=== PATIENT | female | born 1990 | race Caucasian/White ===

== ENCOUNTER 2019-02-25 15:12 | Emergency (ER) | payer SELFPAY ==
[~2019-02-25] VITALS: Ht 175.3 cm; Wt 124.7 kg
--- NOTE | 2019-02-25 16:12 | PHYS DOC ---
Past Medical History Past Medical History: COPD Additional Past Medical Histor: RHEUMATOID ARTHRITIS, ADHD (SALVATORE BENNETT DO) Past Surgical History: Appendectomy, (SALVATORE BENNETT DO) Additional Information: 15 CIGS/DAY Alcohol Use: None Drug Use: Marijuana (SALVATORE BENNETT DO) Adult General Chief Complaint Chief Complaint: BACK PAIN OR INJURY HPI HPI Patient is a 28 year old female presented to ER today for evaluation of chest pain radiated to her upper back started today. Patient denies any injury. Patient has history hypertension, however she is not on any antihypertensive medication. Patient is a smoker, she is not on control medication, she denies any recent travel or operation. Patient denies any history of diabetes or any family history of blood clot disorder or coronary artery disease. She denies any headache, no weakness or numbness in her extremities. Patient says she is not . All other ROS is negative unless otherwise noted in HPI (SALVATORE BENNETT DO) Review of Systems Review of Systems See above (SALVATORE BENNETT DO) Current Medications Current Medications Current Medications Medications (Trade) Dose Ordered Sig/Myra Start Time Stop Time Status Last Admin Dose Admin Info (CONTRAST GIVEN -- Rx MONITORING) 1 each PRN DAILY PRN 02/25/19 17:00 02/27/19 16:59 Iohexol (Omnipaque 350 Mg/ml) 90 ml 1X ONCE 02/25/19 16:45 02/25/19 16:49 DC 02/25/19 17:40 90 ML Magnesium Sulfate 50 ml @ 25 mls/hr 1X ONCE 02/25/19 17:00 02/25/19 18:59 02/25/19 17:00 25 MLS/HR Morphine Sulfate (Morphine Sulfate) 4 mg 1X ONCE 02/25/19 16:15 02/25/19 16:16 DC 02/25/19 16:21 4 MG Ondansetron HCl (Zofran) 4 mg 1X ONCE 02/25/19 16:15 02/25/19 16:16 DC 02/25/19 16:21 4 MG (ERVIN SALMERON MD) Allergies Allergies Allergies Coded Allergies Type Severity Reaction Last Updated Verified No Known Drug Allergies 02/25/19 No (ERVIN SALMERON MD) Physical Exam Physical Exam See above Constitutional: Well developed, well nourished, no acute distress, non-toxic appearance. [] HENT: Normocephalic, atraumatic, bilateral external ears normal, oropharynx moist, no oral exudates, nose normal. [] Eyes: PERRLA, EOMI, conjunctiva normal, no discharge. [] Neck: Normal range of motion, no tenderness, supple, no stridor. [] Cardiovascular:Heart rate regular rhythm, no murmur [] Lungs & Thorax: Bilateral breath sounds clear to auscultation [] Abdomen: Bowel sounds normal, soft, no tenderness, no masses, no pulsatile masses. [] Skin: Warm, dry, no erythema, no rash. [] Back: No tenderness, no CVA tenderness. [] Extremities: No tenderness, no cyanosis, no clubbing, ROM intact, no edema. [] Neurologic: Alert and oriented X 3, normal motor function, normal sensory function, no focal deficits noted. [] Psychologic: Affect normal, judgement normal, mood normal. [] (SALVATORE BENNETT DO) Current Patient Data Vital Signs Vital Signs Date Time Temp Pulse Resp B/P (MAP) Pulse Ox O2 Delivery O2 Flow Rate FiO2 02/25/19 16:21 21 99 Room Air 02/25/19 15:54 98.0 108 173/118 (136) 98.0 (ERVIN SALMERON MD) Lab Values Laboratory Tests Test 02/25/19 15:44 02/25/19 16:08 02/25/19 17:06 Urine Collection Type Unknown Urine Color Yellow Urine Clarity Clear Urine pH 6.0 Urine Specific [place] 1.020 Urine Protein Negative mg/dL (NEG-TRACE) Urine Glucose (UA) Negative mg/dL (NEG) Urine Ketones (Stick) Negative mg/dL (NEG) Urine Blood Large (NEG) Urine Nitrite Negative (NEG) Urine Bilirubin Negative (NEG) Urine Urobilinogen Dipstick 0.2 mg/dL (0.2 mg/dL) Urine Leukocyte Esterase Negative (NEG) Urine RBC 1-2 /HPF (0-2) Urine WBC 1-4 /HPF (0-4) Urine Squamous Epithelial Cells Mod /LPF Urine Bacteria 0 /HPF (0-FEW) Urine Mucus Marked /LPF White Blood Count 7.4 x10^3/uL (4.0-11.0) Red Blood Count 5.10 x10^6/uL (3.50-5.40) Hemoglobin 15.1 g/dL (12.0-15.5) Hematocrit 43.1 % (36.0-47.0) Mean Corpuscular Volume 85 fL (79-100) Mean Corpuscular Hemoglobin 30 pg (25-35) Mean Corpuscular Hemoglobin Concent 35 g/dL (31-37) Red Cell Distribution Width 12.4 % (11.5-14.5) Platelet Count 205 x10^3/uL (140-400) Neutrophils (%) (Auto) 54 % (31-73) Lymphocytes (%) (Auto) 36 % (24-48) Monocytes (%) (Auto) 6 % (0-9) Eosinophils (%) (Auto) 4 % (0-3) H Basophils (%) (Auto) 1 % (0-3) Neutrophils # (Auto) 4.1 x10^3/uL (1.8-7.7) Lymphocytes # (Auto) 2.6 x10^3/uL (1.0-4.8) Monocytes # (Auto) 0.4 x10^3/uL (0.0-1.1) Eosinophils # (Auto) 0.3 x10^3/uL (0.0-0.7) Basophils # (Auto) 0.0 x10^3/uL (0.0-0.2) Prothrombin Time 13.5 SEC (11.7-14.0) Prothrombin Time INR 1.1 (0.8-1.1) Activated Partial Thromboplast Time 27 SEC (24-38) D-Dimer (Ibeth) 0.29 ug/mlFEU (0.00-0.50) Sodium Level 141 mmol/L (136-145) Potassium Level 4.0 mmol/L (3.5-5.1) Chloride Level 107 mmol/L (98-107) Carbon Dioxide Level 24 mmol/L (21-32) Anion Gap 10 (6-14) Blood Urea Nitrogen 13 mg/dL (7-20) Creatinine 0.6 mg/dL (0.6-1.0) Estimated GFR (Cockcroft-Gault) 118.2 BUN/Creatinine Ratio 22 (6-20) H Glucose Level 97 mg/dL (70-99) Calcium Level 9.0 mg/dL (8.5-10.1) Magnesium Level 1.7 mg/dL (1.8-2.4) L Total Bilirubin 0.4 mg/dL (0.2-1.0) Aspartate Amino Transferase (AST) 11 U/L (15-37) L Alanine Aminotransferase (ALT) 19 U/L (14-59) Alkaline Phosphatase 90 U/L (46-116) Troponin I Quantitative < 0.017 ng/mL (0.000-0.055) GA-Sve-K-Type Natriuretic Peptide 44 pg/mL (0-124) Total Protein 7.1 g/dL (6.4-8.2) Albumin 3.2 g/dL (3.4-5.0) L Albumin/Globulin Ratio 0.8 (1.0-1.7) L Lipase 78 U/L (73-393) POC Urine HCG, Qualitative Hcg negative (Negative) Laboratory Tests 02/25/19 16:08 Laboratory Tests 02/25/19 16:08 (ERVIN SALMERON MD) Lab Values Laboratory Tests Test 02/25/19 15:44 02/25/19 16:08 02/25/19 17:06 Urine Collection Type Unknown Urine Color Yellow Urine Clarity Clear Urine pH 6.0 Urine Specific [place] 1.020 Urine Protein Negative mg/dL (NEG-TRACE) Urine Glucose (UA) Negative mg/dL (NEG) Urine Ketones (Stick) Negative mg/dL (NEG) Urine Blood Large (NEG) Urine Nitrite Negative (NEG) Urine Bilirubin Negative (NEG) Urine Urobilinogen Dipstick 0.2 mg/dL (0.2 mg/dL) Urine Leukocyte Esterase Negative (NEG) Urine RBC 1-2 /HPF (0-2) Urine WBC 1-4 /HPF (0-4) Urine Squamous Epithelial Cells Mod /LPF Urine Bacteria 0 /HPF (0-FEW) Urine Mucus Marked /LPF White Blood Count 7.4 x10^3/uL (4.0-11.0) Red Blood Count 5.10 x10^6/uL (3.50-5.40) Hemoglobin 15.1 g/dL (12.0-15.5) Hematocrit 43.1 % (36.0-47.0) Mean Corpuscular Volume 85 fL (79-100) Mean Corpuscular Hemoglobin 30 pg (25-35) Mean Corpuscular Hemoglobin Concent 35 g/dL (31-37) Red Cell Distribution Width 12.4 % (11.5-14.5) Platelet Count 205 x10^3/uL (140-400) Neutrophils (%) (Auto) 54 % (31-73) Lymphocytes (%) (Auto) 36 % (24-48) Monocytes (%) (Auto) 6 % (0-9) Eosinophils (%) (Auto) 4 % (0-3) H Basophils (%) (Auto) 1 % (0-3) Neutrophils # (Auto) 4.1 x10^3/uL (1.8-7.7) Lymphocytes # (Auto) 2.6 x10^3/uL (1.0-4.8) Monocytes # (Auto) 0.4 x10^3/uL (0.0-1.1) Eosinophils # (Auto) 0.3 x10^3/uL (0.0-0.7) Basophils # (Auto) 0.0 x10^3/uL (0.0-0.2) Prothrombin Time 13.5 SEC (11.7-14.0) Prothrombin Time INR 1.1 (0.8-1.1) Activated Partial Thromboplast Time 27 SEC (24-38) D-Dimer (Ibeth) 0.29 ug/mlFEU (0.00-0.50) Sodium Level 141 mmol/L (136-145) Potassium Level 4.0 mmol/L (3.5-5.1) Chloride Level 107 mmol/L (98-107) Carbon Dioxide Level 24 mmol/L (21-32) Anion Gap 10 (6-14) Blood Urea Nitrogen 13 mg/dL (7-20) Creatinine 0.6 mg/dL (0.6-1.0) Estimated GFR (Cockcroft-Gault) 118.2 BUN/Creatinine Ratio 22 (6-20) H Glucose Level 97 mg/dL (70-99) Calcium Level 9.0 mg/dL (8.5-10.1) Magnesium Level 1.7 mg/dL (1.8-2.4) L Total Bilirubin 0.4 mg/dL (0.2-1.0) Aspartate Amino Transferase (AST) 11 U/L (15-37) L Alanine Aminotransferase (ALT) 19 U/L (14-59) Alkaline Phosphatase 90 U/L (46-116) Troponin I Quantitative < 0.017 ng/mL (0.000-0.055) OI-Dxy-O-Type Natriuretic Peptide 44 pg/mL (0-124) Total Protein 7.1 g/dL (6.4-8.2) Albumin 3.2 g/dL (3.4-5.0) L Albumin/Globulin Ratio 0.8 (1.0-1.7) L Lipase 78 U/L (73-393) POC Urine HCG, Qualitative Hcg negative (Negative) Laboratory Tests 02/25/19 16:08 Laboratory Tests 02/25/19 16:08 (SALVATORE BENNETT DO) EKG EKG [] (SALVATORE BENNETT DO) Radiology/Procedures Radiology/Procedures [] (SALVATORE BENNETT DO) Radiology/Procedures [facility] [address] [place] [address] IMAGING REPORT Signed PATIENT: MARCO MORSE ACCOUNT: [id number] : 1990 LOCATION: ER AGE: 28 SEX: F EXAM STATUS: REG ER ORD. PHYSICIAN: SALVATORE BENNETT DO REASON: CHEST PAIN, HYPERTENSIVE, DISSECTION STUDIES PROCEDURE: CT ANGIO CHEST W ABD PEL W/ CTA chest abdomen pelvis with contrast dated 02/25/2019. No comparison available. CLINICAL INDICATION: Chest pain hypertension. Evaluate for dissection. TECHNIQUE: Contiguous axial imaging the chest abdomen pelvis performed following the intravenous administration of 100 cc Omnipaque 350. Study was performed as dedicated CTA with thin cut coronal and sagittal MIPS reconstructions. One or more of the following individualized dose reduction techniques were utilized for this examination: 1. Automated exposure control 2. Adjustment of the mA and/or kV according to patient size 3. Use of iterative reconstruction technique FINDINGS: Heart size within normal limits. No pericardial effusion. Thoracic aorta is normal in caliber. No intimal flap or periaortic fluid collection. No mediastinal, hilar or axillary lymphadenopathy. There are couple of nonpathologically enlarged precarinal and right paratracheal lymph nodes. Increased density in the anterior superior mediastinum likely represents residual thymic tissue. There are multiple large low-density cystic lesions of the thyroid gland, measuring up to 5.6 cms on the right and 4.5 cm on the left. The thyroid gland is enlarged. Central airways are patent. Mild diffuse bronchial wall thickening. Lungs are clear. No consolidation or pleural effusion. No pneumothorax. Minimal linear opacity in the right lower lobe, likely scar or atelectasis. Small subpleural nodule at the medial right lower lobe on image 79 measures 5 mm. Liver, spleen, pancreas, adrenal glands, gallbladder and kidneys are unremarkable. No hydronephrosis. Unopacified GI tract normal in caliber and contour. No focal bowel wall thickening. No inflammatory stranding in the mesentery. No ascites or lymphadenopathy. Evidence of prior lap band placement. The abdominal aorta is normal in caliber. No intimal flap or periaortic fluid collection. Celiac artery and SMA and bilateral renal arteries are patent. Images of pelvis show nondistended urinary bladder. Uterus and adnexa are unremarkable. Small simple cyst or dominant follicle at the right ovary measures 1.8 cm. Bone windows show no acute findings. IMPRESSION: 1. No acute abnormality of chest abdomen or pelvis. No evidence of dissection. 2. Thyroid enlargement with multiple thyroid cysts. If indicated, thyroid ultrasound would better evaluate. 3. Minimal patchy nodular opacity in the right lower lobe, likely scar or atelectasis. Electronically signed by: Casimiro Ohara MD (02/25/2019 6:16 PM) [facility] DICTATED and SIGNED BY: CASIMIRO OHARA MD DATE: 02/25/191815 (ERVIN SALMERON MD) Course & Med Decision Making Course & Med Decision Making Pertinent Labs and Imaging studies reviewed. (See chart for details) Checked out to DR. ERVIN SALMERON AT [facility], AWAITING FOR CT SCAN REPORT. (SALVATORE BENNETT DO) Course & Med Decision Making Discussed findings of CT with patient. Plan for dc home. HCTZ 12.5mg po daily rx provided upon discharge home. Return precautions provided. (ERVIN SALMERON MD) Dragon Disclaimer Dragon Disclaimer This electronic medical record was generated, in whole or in part, using a voice recognition dictation system. (SALVATORE BENNETT DO) Departure Departure Impression: Primary Impression: Chest pain Disposition: HOME, SELF-CARE Condition: IMPROVED Referrals: BRITTON PATEL MD (PCP) Patient Instructions: Chest Pain (Nonspecific) Additional Instructions: Recommend follow up with PCP 3 - 5 days Return to the ER with worsening symptoms, intractable pain, fever, altered mental status Tylenol/Motrin as needed for pain Take new medications for BP as prescribed (HCTZ 12.5mg daily) Scripts Hydrochlorothiazide (HYDROCHLOROTHIAZIDE TABLET) 12.5 Mg Tablet 12.5 MG PO DAILY for DIURETIC for 30 Days, #30 TAB 0 Refills Prov: ERVIN SALMERON MD 02/25/19 Problem Qualifiers Primary Impression: Chest pain Chest pain type: unspecified Qualified Codes: R07.9 - Chest pain, unspecified SALVATORE BENNETT DO Feb 25, 2019 16:12 ERVIN SALMERON MD Feb 25, 2019 18:27
[2019-02-25] MEDS ORDERED: MORPHINE SULFATE 4 MG/ML VIAL. IV ONE (16:15)
[2019-02-25] MEDS ORDERED: ONDANSETRON PF 4 MG/2 ML VIAL. IV ONE (16:15)
--- NOTE | 2019-02-25 16:22 | EKG ---
[facility] [address] [place] [address] Test Date: 2019-02-25 Test Time: 16:06:45 Pat Name: MARCO MORSE Department: Room: Gender: F [employer]: : 1990 Requested By: SALVATORE BENNETT Order Number: [id number] Reading MD: Measurements Intervals [place] Rate: 79 P: 27 TX: 178 QRS: -8 QRSD: 80 T: 29 QT: 338 QTc: 389 Interpretive Statements SINUS RHYTHM LEFTWARD AXIS OTHERWISE NORMAL ECG RI6.01 No previous ECG available for comparison
[2019-02-25 16:27] LABS: BASO % 1 % (0-3); EOS # 0.3 x10^3/uL (0.0-0.7); EOS % 4 % (0-3); HEMATOCRIT 43.1 % (36.0-47.0); HEMOGLOBIN 15.1 g/dL (12.0-15.5); LYMPH # 2.6 x10^3/uL (1.0-4.8); LYMPH % 36 % (24-48); MEAN CORPUSCULAR HEMOGLOBIN 30 pg (25-35); MEAN CORPUSCULAR HGB CONC 35 g/dL (31-37); MEAN CORPUSCULAR VOLUME 85 fL (79-100); MONO # 0.4 x10^3/uL (0.0-1.1); MONO % 6 % (0-9); NEUT # 4.1 x10^3/uL (1.8-7.7); NEUT % 54 % (31-73); PLATELET COUNT 205 x10^3/uL (140-400); RED CELL DISTRIBUTION WIDTH 12.4 % (11.5-14.5); WHITE BLOOD COUNT 7.4 x10^3/uL (4.0-11.0)
[2019-02-25 16:31] LABS: PROTHROMBIN TIME PATIENT 13.5 SEC (11.7-14.0)
[2019-02-25 16:34] LABS: D-DIMER 0.29 ug/mlFEU (0.00-0.50)
[2019-02-25 16:38] LABS: CREATININE 0.6 mg/dL (0.6-1.0); GFR 118.2
[2019-02-25 16:45] LABS: ALBUMIN 3.2 g/dL (3.4-5.0); ALBUMIN/GLOBULIN RATIO 0.8 (1.0-1.7); MAGNESIUM 1.7 mg/dL (1.8-2.4); TOTAL BILIRUBIN 0.4 mg/dL (0.2-1.0); TOTAL PROTEIN 7.1 g/dL (6.4-8.2)
[2019-02-25] MEDS ORDERED: IOHEXOL 350 MG/ML 100 ML VIAL. IV ONE (16:45)
[2019-02-25] MEDS ORDERED: CONTRAST GIVEN. MC PRN (17:00)
[2019-02-25] MEDS ORDERED: MAGNESIUM SULFATE 2GM 50 ML IV ONE (17:00)
[2019-02-25 17:12] LABS: BILIRUBIN,URINE NEGATIVE (NEG); CLARITY,URINE CLEAR; COLOR,URINE YELLOW; NITRITE,URINE NEGATIVE (NEG); PROTEIN,URINE NEGATIVE (NEG-TRACE); UROBILINOGEN,URINE 0.2 mg/dL (0.2 mg/dL)
[2019-02-25 17:18] LABS: SQUAMOUS EPITHELIAL CELL,UR MOD /LPF
[2019-02-25 17:19] LABS: BACTERIA,URINE 0 /HPF (0-FEW)
[2019-02-25 18:00] VITALS: BP 142/83
--- NOTE | 2019-02-25 18:19 | RAD ---
CTA chest abdomen pelvis with contrast dated 02/25/2019. No comparison available. CLINICAL INDICATION: Chest pain hypertension. Evaluate for dissection. TECHNIQUE: Contiguous axial imaging the chest abdomen pelvis performed following the intravenous administration of 100 cc Omnipaque 350. Study was performed as dedicated CTA with thin cut coronal and sagittal MIPS reconstructions. One or more of the following individualized dose reduction techniques were utilized for this examination: 1. Automated exposure control 2. Adjustment of the mA and/or kV according to patient size 3. Use of iterative reconstruction technique FINDINGS: Heart size within normal limits. No pericardial effusion. Thoracic aorta is normal in caliber. No intimal flap or periaortic fluid collection. No mediastinal, hilar or axillary lymphadenopathy. There are couple of nonpathologically enlarged precarinal and right paratracheal lymph nodes. Increased density in the anterior superior mediastinum likely represents residual thymic tissue. There are multiple large low-density cystic lesions of the thyroid gland, measuring up to 5.6 cms on the right and 4.5 cm on the left. The thyroid gland is enlarged. Central airways are patent. Mild diffuse bronchial wall thickening. Lungs are clear. No consolidation or pleural effusion. No pneumothorax. Minimal linear opacity in the right lower lobe, likely scar or atelectasis. Small subpleural nodule at the medial right lower lobe on image 79 measures 5 mm. Liver, spleen, pancreas, adrenal glands, gallbladder and kidneys are unremarkable. No hydronephrosis. Unopacified GI tract normal in caliber and contour. No focal bowel wall thickening. No inflammatory stranding in the mesentery. No ascites or lymphadenopathy. Evidence of prior lap band placement. The abdominal aorta is normal in caliber. No intimal flap or periaortic fluid collection. Celiac artery and SMA and bilateral renal arteries are patent. Images of pelvis show nondistended urinary bladder. Uterus and adnexa are unremarkable. Small simple cyst or dominant follicle at the right ovary measures 1.8 cm. Bone windows show no acute findings. IMPRESSION: 1. No acute abnormality of chest abdomen or pelvis. No evidence of dissection. 2. Thyroid enlargement with multiple thyroid cysts. If indicated, thyroid ultrasound would better evaluate. 3. Minimal patchy nodular opacity in the right lower lobe, likely scar or atelectasis. Electronically signed by: Casimiro Rousseau MD (02/25/2019 6:16 PM) [facility]
[2019-02-25] MEDS ORDERED: HYDR12.58 PO (18:25)
== END 2019-02-25 19:12 | disposition home or self-care (01) ==
LOC: ER 15:12
DX: R07.89 Other chest pain (principal); J44.9 Chronic obstructive pulmonary disease, unspecified; M06.9 Rheumatoid arthritis, unspecified; F17.210 Nicotine dependence, cigarettes, uncomplicated
CPT/HCPCS: 36415; 71275; 74177; 80053; 81001; 81025; 83690; 83735; 83880; 84484; 85025; 85379; 85610; 85730; 93005; 96365; 96375; 99285; J2270; J2405; J3475; Q9967

== ENCOUNTER 2019-05-18 13:53 | Emergency (ER) | payer OTHER ==
[~2019-05-18 13:53] MED LIST: HYDR12.58 PO
== END 2019-05-18 14:42 | disposition left against medical advice (07) ==
LOC: ER 13:53
DX: R10.32 Left lower quadrant pain (principal); Z53.21 Procedure and treatment not carried out due to patient leaving prior to being seen by health care provider